=== PATIENT | female | born 1935 | race Caucasian/White ===

== ENCOUNTER 2018-03-02 09:48 | Outpatient (CLI) | payer MEDICARE ==
--- NOTE | 2018-03-02 12:06 | MRI ---
MRI BRAIN WITH AND WITHOUT CONTRAST: INDICATIONS: Brain mass. Follow-up intraventricular mass noted on prior MRI from 01/01/2017. COMPARISON: Prior MRI study from 01/01/2017. Prior CT scans from 12/31/2016, 03/17/2017, and 04/15/2017. TECHNIQUE: Multiplanar, multisequential images of the brain obtained. Post contrast images obtained with admini stration of 12 mL of MultiHance IV. FINDINGS: Mild cortical volume loss. Moderate chronic ischemic white matter changes again noted. These findin gs are stable. There is no evidence of restricted diffusion. The small nodule adjacent to the epidi dymal surface of the right lateral ventricle is again noted on all sequences. It measures approximat sarwat 7 mm and is stable in appearance from the prior study. There is no evidence of enhancement on po st contrast images. No other brain parenchymal enhancement. IMPRESSION: 1. The small, 7 mm, intraventricular mass, adjacent to the lateral wall of the right lateral ventric le, is stable in size and appearance. 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 2. Findings are otherwise stable, including mild cortical atrophy and moderate chronic ischemic whit e matter change. POS: [facility]
[2018-03-02] MEDS ORDERED: Gadobenate Dimeglumine 529 MG/1 ML (20ML VIAL) ONE (15:10)
== END 2018-03-02 09:49 | disposition home or self-care (01) ==
LOC: TBSIIMAG 09:48
PROVIDERS: ATTEND Neurological Surgery
DX: G93.9 Disorder of brain, unspecified (principal)
CPT/HCPCS: 70553; 82565; A9579

== ENCOUNTER 2018-05-03 15:45 | Outpatient (CLI) | payer MEDICARE ==
--- NOTE | 2018-05-03 16:32 | RAD ---
ONE VIEW THORACIC AND LUMBAR SPINE: History: Scoliosis study. FINDINGS: There is levorotatory scoliosis of the lumbar spine. There appear to be five lumbar type vertebral cathy dies. There appear to be twelve thoracic type vertebral bodies. Atherosclerosis of the aorta is noted. IMPRESSION: Levorotatory scoliosis of the lumbar spine. There appears to be at least 37 degrees of scoliosis. POS: [facility]
== END 2018-05-03 15:46 | disposition home or self-care (01) ==
LOC: SCSRAD 15:45
PROVIDERS: ATTEND Family Medicine
DX: M41.9 Scoliosis, unspecified (principal)
CPT/HCPCS: 72081

== ENCOUNTER 2018-07-06 10:25 | Outpatient (CLI) | payer MEDICARE ==
--- NOTE | 2018-07-06 11:57 | RAD ---
LEFT KNEE THREE VIEWS: HISTORY: Knee pain, M25.562. COMPARISON: None. FINDINGS: Mild joint effusion. There is narrowing of the lateral compartment with subchondral sclerosis and os teophyte formation. There are also osteophytes seen in the medial compartment and in the patellofemo ral compartment. No acute displaced fracture or malalignment. IMPRESSION: Moderate degenerative changes, worse in the lateral compartment. POS: [facility]
== END 2018-07-06 10:26 | disposition home or self-care (01) ==
LOC: SCSRAD 10:25
PROVIDERS: ATTEND Family Medicine
DX: M25.562 Pain in left knee (principal); M17.12 Unilateral primary osteoarthritis, left knee

== ENCOUNTER 2019-07-01 20:05 | Inpatient (IN) | payer MEDICARE ==
[~2019-07-01 20:05] MED LIST: ISOVUE-370 76%-LOCM 1 ML ONE
[2019-07-01 20:37] LABS: #Eosinphils 0.1 thou/uL (0.0-0.7); #Monocytes 0.7 thou/uL (0.11-0.59); #Neutrophils 11.3 thou/uL (1.40-6.50); %Basophils 0.1 % (0.0-1.0); %Eosinophils 0.8 % (0.0-10.0); %Lymphocytes 7.5 % (21.0-51.0); %Monocytes 5.1 % (0.0-10.0); %Neutrophils 86.6 % (42.0-75.0); Hemoglobin 13.6 g/dL (12.0-16.0); Mean Corpuscular Hemoglobin 28.8 pg (27.0-31.0); Mean Platelet Volume 7.9 fL (7.4-10.4); Platelet Count 228 thou/uL (130-400); RBC Distribution Width 13.8 % (11.5-14.5); Red Blood Cell (RBC) Count 4.71 mill/uL (4.20-5.40)
--- NOTE | 2019-07-01 20:57 | RAD ---
ONE VIEW CHEST: 07/01/19 HISTORY: Nausea. COMPARISON: 12/31/16 FINDINGS: There are sternotomy wires. Atherosclerosis of the aortic knob. Heart is enlarged. Pulmonary vessels are prominent. Bilateral pleural effusion with adjacent parenchymal change. No pneumothorax. IMPRESSION: Congestive heart failure. POS: [facility]
[2019-07-01 20:58] LABS: ALT (SGPT) 70 U/L (8-55); AST (SGOT) 54 U/L (5-34); Albumin 4.1 g/dL (3.4-4.8); Alkaline Phosphatase 107 U/L (40-150); Anion Gap 16 mmol/L (10-20); BUN (Urea Nitrogen) 20 mg/dL (9.8-20.1); Calc. Creatinine Clearance 0 mL/min (70-130); Calcium 9.5 mg/dL (7.8-10.44); Carbon Dioxide 23 mmol/L (23-31); Chloride 107 mmol/L (98-107); Estimated GFR-MDRD 66; Globulin 2.5 g/dL (2.4-3.5); Glucose 142 mg/dL (83-110); Lipase 19 U/L (8-78); Magnesium 2.3 mg/dL (1.6-2.6); Potassium 3.5 mmol/L (3.5-5.1); Protein, Total 6.6 g/dL (6.0-8.3); Sodium 142 mmol/L (136-145)
[2019-07-01] MEDS ORDERED: Diltiazem 125 MG/25 ML ONE (21:18)
[2019-07-01] MEDS ORDERED: Ondansetron PF 4 MG/2 ML Vial ONE (21:18)
--- NOTE | 2019-07-01 22:12 | CT ---
CT ABDOMEN AND PELVIS WITH IV CONTRAST 07/01/2019 CLINICAL INFORMATION: Abdominal pain which is generalized. Nausea and one episode of diarrhea. History of cholecystectomy a nd gastric bypass procedure. COMPARISON: None. Technique: Multiple contiguous axial CT images are obtained through the abdomen and pelvis with IV contrast. Cor onal reformatted images are provided. FINDINGS: Lower Chest: Incomplete visualization of moderately large bilateral pleural effusions with associated consolidation probably due to passive atelectasis; although, bibasilar pneumonia cannot be excluded. The heart is enlarged. Vascular calcifications are seen in the visualized coronary arteries . Median sternotomy wires are partially seen. Vessels: Vascular calcifications are seen in the abdominal aorta and involving the iliac arteries. Abdomen: Portal vein:Patent Gallbladder: Surgically absent. Liver: Slightly heterogeneous areas of ill-defined enhancement are seen in the periphery of the liver which may be related to cardiac decompensation and/or transient hepatic arterial differences. Spleen: within normal limits. Pancreas: within normal limits. Adrenals: within normal limits. Kidneys: within normal limits. Bowel: There are no postsurgical changes involving the stomach as provided clinical history suggests. However, there does appear to be mild thickening in the region of the but gastric antrum. Loops of small bowel are normal in caliber. Appendix: Not definitely visualized, there are no secondary signs seen to suggest appendicitis. Peritoneum: No ascites or free air; no fluid collection. Mesentery and Retroperitoneum: No enlarged mesenteric or retroperitoneal lymph nodes. Abdominal Wall: within normal limits. Pelvis: Reproductive Organs: Grossly within normal limits for patient's age. Pelvis within normal limits. Bladder: within normal limits. Bones: Multilevel degenerative changes are seen throughout the lumbar spine. There is left convex cur vature of the thoracolumbar spine. IMPRESSION: 1. Incomplete visualization of moderately large bilateral pleural effusions with associated bibasilar consolidation. Areas of consolidation may be related to passive atelectasis; although, bibasilar pneumonia cannot be excluded. 2. Cardiomegaly. 3. Slight heterogeneity of the liver which could be secondary to hepatic congestion due to right hear t decompensation. 4. Suggested mild wall thickening involving the gastric antrum and pylorus. Endoscopy would be better study of choice for further evaluation of this finding. 5. There is otherwise no acute finding seen in the abdomen or pelvis.
[2019-07-01] MEDS ORDERED: cefTRIAXone\\ROCEPHIN 1 GM VIAL ONE (22:38)
[2019-07-01] MEDS ORDERED: Azithromycin 500 MG in Sodium Chloride 0.9% 250 ML 250 ML IVPB SCH (23:00)
[2019-07-02] MEDS ORDERED: Ondansetron PF 4 MG/2 ML Vial IVP PRN ×2 (02:01→16:14)
[2019-07-02] MEDS ORDERED: Ondansetron ODT 4 MG TAB SL PRN (02:01)
[2019-07-02] MEDS ORDERED: Sodium Chloride 0.45% 1,000 ML IV SCH (02:01)
[2019-07-02] MEDS ORDERED: Diltiazem 125 MG in Sodium Chloride 0.9% 100 ML IVPB SCH ×3 (02:15→10:45)
[2019-07-02 02:54] LABS: Troponin I 0.015 ng/mL (< 0.028)
[2019-07-02 08:00] VITALS: BMI 26.4
[2019-07-02 08:18] LABS: Bilirubin Negative (Negative); Blood, Urine Negative (Negative); Clarity Clear (Clear); Glucose, Urine (Dipstick) Normal (Negative); Leukocyte Negative Leu/uL (Negative); Nitrite Negative (Negative); Protein, Urine (Dipstick) 30 mg/dL (Neg-Trace); Urobilinogen Normal mg/dL (Less than 2)
[2019-07-02 08:28] LABS: RBC/HPF 0-3 HPF (0-3); WBC/HPF 0-3 HPF (0-3)
[2019-07-02 08:29] LABS: Bacteria/HPF Rare-Few HPF (None Seen); Squamous Epithelial 0-3 HPF (0-3)
[2019-07-02] MEDS ORDERED: Furosemide 40 MG/4 ML VIAL SLOW IVP SCH (08:30)
[2019-07-02 08:31] LABS: Urine Culture Reflex No No
[2019-07-02] MEDS ORDERED: Prevnar 13-Val Conj/PF 0.5 ML SYRINGE IM ONE (09:00)
--- NOTE | 2019-07-02 14:57 | CON ---
DATE OF CONSULTATION: REASON FOR CONSULTATION: Atrial fibrillation. HISTORY OF PRESENT ILLNESS: Ms. Renteria is an 84-year-old woman, who is a patient of Dr. Luigi Morris. The patient was seen in 2017 for atrial fibrillation with rapid ventricular response. At that time, anticoagulation therapy was deferred due to frequent falls and a brain mass. She was last seen in the office in 2018 and again, deemed not to be a good candidate. She at that time was sent for EP for Watchman/Lariat device. She has missed her followup appointments, so I am unsure whether she underwent the procedure. The patient is confused and not able to give an appropriate history. She recently presented with weakness and fatigue. She also had abdominal pain and nausea. She was subsequently diagnosed with pneumonia. PAST MEDICAL HISTORY: 1. CAD, status post bypass surgery. 2. Hyperlipidemia. 3. Paroxysmal atrial fibrillation. 4. Breast cancer. 5. Cholecystectomy. 6. Tonsillectomy. 7. Mastectomy. ALLERGIES: NONE. HOME MEDICATIONS: Include potassium, vitamin D, Lipitor, aspirin, multivitamin, Protonix, ramipril, Aldactone, and amlodipine. REVIEW OF SYSTEMS: Difficult to obtain. PHYSICAL EXAMINATION: GENERAL: Patient is a pleasant female who is in no acute distress. The patient appears their stated age. VITAL SIGNS: Blood pressure 151/74, pulse 63, and temperature 99.3. NEUROLOGIC: The patient is alert and oriented x3 with no focal neurologic deficits. HEENT: Sclerae without icterus. Mouth has moist mucous membranes with normal pallor. NECK: No JVD. Carotid upstroke brisk. No bruits bilaterally. LUNGS: Clear to auscultation with unlabored respirations. BACK: No scoliosis or kyphosis. CARDIAC: Regular rate and rhythm with normal S1 and S2. No S3 or S4 noted. No significant rubs, murmurs, thrills, or gallops noted throughout the precordium. PMI is not displaced. There is no parasternal heave. ABDOMEN: Soft, nontender, nondistended. No peritoneal signs present. No hepatosplenomegaly. No abnormal striae. EXTREMITIES: 2+ femoral and 2+ dorsalis pedis pulses. No cyanosis, clubbing, or edema. SKIN: No gross abnormalities. Insert a new patient. PERTINENT LABORATORY DATA: Hemoglobin 13.6, hematocrit 42.4, and creatinine 0.82. Chest x-ray, findings suggest CHF. IMPRESSION: 1. Pneumonia. 2. Atrial fibrillation. 3. Likely heart failure of unknown etiology. 4. Dementia. RECOMMENDATION: Ms. Renteria appears to be rate controlled. Diltiazem has been discontinued. We will add low-dose beta-zaida therapy given atrial fibrillation and previous history of a bypass surgery. Continue antibiotic therapy as prescribed. Avoid anticoagulation therapy. Further recommendation per Dr. Luigi Morris. Job ID: [id number]
[2019-07-02] MEDS ORDERED: Meclizine HCl 25 MG TAB PO PRN (16:12)
[2019-07-02] MEDS ORDERED: Senokot S 8.6-50 MG TAB PO PRN (16:14)
[2019-07-02] MEDS ORDERED: Acetaminophen 325 MG TAB PO PRN (16:14)
[2019-07-02] MEDS ORDERED: Bisacodyl 5 MG TAB PO PRN (16:14)
[2019-07-02] MEDS: Carvedilol 25 MG TAB PO SCH (17:03)
[2019-07-02] MEDS: traZODone HCl 50 MG TAB PO SCH (20:56)
--- NOTE | 2019-07-02 22:23 | HP ---
CHIEF COMPLAINT: Nausea and abdominal pain. HISTORY OF PRESENT ILLNESS: The patient is an 84-year-old female with past medical history of atrial fibrillation, not on any anticoagulation. She also has a history of vertigo, has a history of hypertension, and she has also had a history of small subdural hemorrhage due to fall. This was back in 2017. The patient initially presented to the hospital with complaints of nausea, which lasted for about a whole day. The patient lives in an independent living with her . The patient's family stated that when her nausea did not improve at the end of the day, they did call the [facility] nurse, who advised the patient to come into the ER. When the family went to evaluate the patient, the patient's heart rate seemed to be elevated which concerned the family member, so the patient was brought into the hospital. PAST MEDICAL HISTORY: As of the following. The patient has a history of fall, has a history of dementia, has a history of atrial fibrillation and neuropathy. PAST SURGICAL HISTORY: She has had bilateral mastectomies and cardiac stents put in. She has also had a cholecystectomy. For her breast cancer, she has only had radiation, no chemotherapy per family. SOCIAL HISTORY: She lives in an independent living with her at [facility]. She denies any alcohol use or drug use per family. No smoking history. I have discussed code status with the family member, who is going to bring information on her resuscitation orders. ALLERGIES: SHE IS ALLERGIC TO CODEINE AND SULFATE. MEDICATIONS: She takes: 1. Carvedilol 12.5 b.i.d. 2. Meclizine 2.5 t.i.d. 3. Pantoprazole 40 mg twice a day. 4. Trazodone 50 mg at bedtime. PHYSICAL EXAMINATION: VITAL SIGNS: Temperature of 98.8, 93, respirations are 18, blood pressure 140/90. Her initial pulse was 140 when she came to the ER, but now currently 79. GENERAL: She is awake, alert, and oriented x3. Does not appear in distress. HEENT: Normocephalic, atraumatic. No lymphadenopathy lanny. Pupils are equal and reactive to light. CV: Irregularly irregular, rate controlled. LUNGS: Diminished breath sounds to bilateral lower lung bases. ABDOMEN: Soft. Bowel sounds are present x2. No pain upon palpation to her abdominal area. EXTREMITIES: No edema present. Pedal pulses are present x2. NEUROVASCULAR: No focal deficits noted. She is only oriented to self and place. She at times just does not know what really is going on. SKIN: No cuts, lesions or bruises noted. LABORATORY RESULTS: As of the following; WBCs of 13.0, hemoglobin of 13.6, hematocrit of 42.4, and platelets of 228. Sodium of 142, potassium of 3.5, BUN of 20, creatinine 0.82. LFTs are mildly elevated. Her troponins x3 were negative. Her proBNP which I checked was 649. Lipase was 19. Her urine did not show any acute infectious etiology. She did have a chest x-ray, which indicated bilateral pleural effusion. She also had a CT of abdomen and pelvis, which indicated large bilateral pleural effusion, cardiomegaly, and suggestive of mitral valve thickening involving the gastric antrum and pylorus. ASSESSMENT AND PLAN: The patient is a very pleasant 84-year-old female, who presents to the hospital with complaints of nausea. 1. Possible heart failure. The patient did complain with nausea and abdominal pain. Her BNP is elevated. She was found to be in atrial fibrillation with rapid ventricular response. I will continue the Cardizem and will get an echocardiogram. I will give her one dose of Lasix. Her BNP also was elevated. Cardiology has been consulted. 2. Atrial fibrillation with rapid ventricular response. She is currently not on any anticoagulation, most likely due to a fall back in 2017, which she had a hematoma. She does use a walker and she is a fall risk. She lives with her 92-year-old at an independent living. Currently, she is rate controlled. 3. Dementia. We will continue to monitor. 4. History of hypertension. We will continue to monitor. 5. Deep venous thrombosis prophylaxis. We will put the patient on some SCDs. Job ID: [id number]
[2019-07-03] MEDS ORDERED: diphenhydrAMINE 25 MG CAP PO SCH (01:30)
[2019-07-03 05:56] LABS: #Eosinphils 0.1 thou/uL (0.0-0.7); #Lymphocytes 1.1 thou/uL (1.20-3.40); #Monocytes 0.8 thou/uL (0.11-0.59); #Neutrophils 7.7 thou/uL (1.40-6.50); %Eosinophils 0.9 % (0.0-10.0); %Lymphocytes 11.6 % (21.0-51.0); %Monocytes 8.2 % (0.0-10.0); %Neutrophils 79.3 % (42.0-75.0); Mean Corpuscular HGB CONC 32.2 g/dL (32.0-36.0); Mean Corpuscular Hemoglobin 29.3 pg (27.0-31.0); Platelet Count 171 thou/uL (130-400); RBC Distribution Width 13.8 % (11.5-14.5); Red Blood Cell (RBC) Count 4.09 mill/uL (4.20-5.40); White Blood Cell (WBC) Count 9.7 thou/uL (4.8-10.8)
[2019-07-03 06:03] LABS: Anion Gap 12 mmol/L (10-20); BUN (Urea Nitrogen) 20 mg/dL (9.8-20.1); Calc. Creatinine Clearance 53 mL/min (70-130); Calcium 8.6 mg/dL (7.8-10.44); Carbon Dioxide 25 mmol/L (23-31); Chloride 106 mmol/L (98-107); Estimated GFR-MDRD 69; Glucose 107 mg/dL (83-110); Sodium 140 mmol/L (136-145)
[2019-07-03] MEDS ORDERED: Haloperidol Lactate 5 MG/ML VIAL IM PRN (08:07)
[2019-07-03] MEDS ORDERED: Furosemide 40 MG/4 ML VIAL SLOW IVP SCH (09:00)
[2019-07-03] MEDS ORDERED: Calcium Carbonate 500 MG TAB PO SCH (09:00)
[2019-07-03] MEDS: Calcium Carbonate 600 MG TAB PO SCH (09:10)
[2019-07-03] MEDS: Carvedilol 25 MG TAB PO SCH ×2 (09:10→15:59)
[2019-07-03] MEDS: Magnesium Oxide 250 MG TAB PO SCH (09:12)
[2019-07-03] MEDS: Enoxaparin Sodium 40 MG/0.4 ML SYRINGE SC SCH (09:12)
[2019-07-03] MEDS: Aspirin Chewable 81 MG TAB PO SCH (09:12)
[2019-07-03] MEDS: Cyanocobalamin (Vitamin B-12) 1,000 MCG TAB PO SCH (09:12)
[2019-07-03] MEDS ORDERED: Potassium Chloride 20 MEQ TAB PO SCH (09:45)
[2019-07-03] MEDS ORDERED: Potassium Chloride 20 MEQ/100 ML PREMIX BAG IVPB SCH (10:15)
[2019-07-03] MEDS ORDERED: Potassium Chloride 10 MEQ/100 ML PREMIX BAG IVPB SCH (10:30)
--- NOTE | 2019-07-03 12:26 | PDOC.CTH ---
Cardiology Progress Note - Subjective No new issues. She was confused overnight and pulled her out. She is very pleasant this morning. - Objective Vital Signs Temp Pulse Resp BP Pulse Ox 07/03/19 11:41 98.5 F 84 17 138/84 95 07/03/19 08:08 99.0 F 120 H 18 118/84 94 L 07/03/19 04:00 94 L 07/03/19 03:51 98.3 F 120 H 25 H 147/84 H 92 L 07/03/19 02:20 110 H 16 134/66 94 L Weight 145 lb 07/02/19 07/03/19 07/04/19 06:59 06:59 06:59 Intake Total 200 2852 Output Total 1545 Balance 200 1307 - Physical Examination General/Neuro: NAD Neck: no JVD present Lungs: CTA, unlabored respirations Heart: other: (irreg irreg) Abdomen: soft Extremities: + edema B (trace) - Telemetry Telemetry Rhythm: Afib HR 90-120 - Labs Result Diagrams: 07/03/19 05:18 07/03/19 05:18 Troponin/CKMB Troponin I 0.015 ng/mL (< 0.028) 07/02/19 02:22 - Assessment/Plan 1. Afib RVR 2. Acute systolic decompensated heart failure. EF 30-35% while in rapid afib. 3. Chronic afib 4. Hx of CAD s/p CABG 5. Brain mas 6. Frequent falls with Hx of a small subdural hematoma in the past due to a fall. 7. Hypokalemia PLAN: - Continue diuresis. - Continue rate control.. Will try to slow down more with amiodarone. - Not a good candidate for anticoagulation given falls and brain mass and Hx of subdural hematoma. - She wishes to be conservative with her care. Family cancelled her appointments with me in the last year as they thought there was nothing to do wit her heart and she continues to want to be conservative. She is not wanting a heart catheterization or an AICD. Will plan on repeating echo before discharge and see if her EF is better with better rate control. - Elan Presley
[2019-07-03] MEDS: Furosemide 40 MG/4 ML VIAL SLOW IVP SCH (14:02)
--- NOTE | 2019-07-03 14:13 | PDOC.HOSPP ---
- Subjective Encounter Date: 07/03/19 Encounter Time: 10:30 Subjective: pt up in bed very combative. - Objective Vital Signs & Weight: Vital Signs (12 hours) Temp Pulse Resp BP Pulse Ox 07/03/19 11:41 98.5 F 84 17 138/84 95 07/03/19 08:08 99.0 F 120 H 18 118/84 94 L 07/03/19 04:00 94 L 07/03/19 03:51 98.3 F 120 H 25 H 147/84 H 92 L 07/03/19 02:20 110 H 16 134/66 94 L Weight Weight 145 lb I&O: 07/02/19 07/03/19 07/04/19 06:59 06:59 06:59 Intake Total 200 2852 Output Total 1545 Balance 200 1307 Result Diagrams: 07/03/19 05:18 07/03/19 05:18 ROS - Review of Systems Respiratory: denies: cough, dry, shortness of breath, hemoptysis, SOB with excertion, pleuritic pain, sputum, wheezing, other Cardiovascular: denies: chest pain, palpitations, orthopnea, paroxysmal noc. dyspnea, edema, light headedness, other Gastrointestinal: denies: nausea, vomitting, abdominal pain, diarrhea, constipation, melena, hematochezia, other - Medication Medications: Active Medications Generic Name Dose Route Start Last Admin Trade Name Freq PRN Reason Stop Dose Admin Aspirin 81 mg 07/03/19 09:00 07/03/19 09:12 Aspirin Chewable PO 81 mg DAILY DAMI Administration Calcium Carbonate 600 mg 07/03/19 08:00 07/03/19 09:10 Caltrate PO 600 mg QAM-[facility] Administration Carvedilol 12.5 mg 07/02/19 17:00 07/03/19 09:10 Coreg PO 12.5 mg BID-[facility] Administration Cholecalciferol 2,000 units 07/03/19 09:00 07/03/19 09:12 Vitamin D3 PO 2,000 units DAILY DAMI Administration Cyanocobalamin 1,000 mcg 07/03/19 09:00 07/03/19 09:12 Vitamin B-12 PO 1,000 mcg DAILY DAMI Administration Enoxaparin Sodium 40 mg 07/03/19 09:00 07/03/19 09:12 Lovenox SC 40 mg 0900 DAMI Administration Furosemide 40 mg 07/03/19 14:00 07/03/19 14:02 Lasix SLOW IVP 40 mg 0600,1400 DAMI Administration Haloperidol Lactate 5 mg 07/03/19 08:07 07/03/19 09:13 Haldol IM 5 mg Q4H PRN Administration Agitation Levofloxacin 500 mg/ Device 100 mls @ 100 mls/hr 07/02/19 17:00 07/02/19 17: 04 IVPB 100 mls Q24H DAMI Administration Magnesium Oxide 250 mg 07/03/19 09:00 07/03/19 09:12 Magnesium Oxide PO 250 mg DAILY [facility] Administration Ondansetron HCl 4 mg 07/02/19 16:14 07/03/19 14:05 Zofran IVP 4 mg Q6H PRN Administration Nausea/Vomiting Pantoprazole Sodium 40 mg 07/03/19 09:00 07/03/19 09:12 Protonix PO 40 mg DAILY [facility]I Administration Sodium Chloride 10 ml 07/02/19 09:00 07/03/19 09:12 Flush - Normal Saline IVF 10 ml Q12HR [facility]I Administration Trazodone HCl 50 mg 07/02/19 21:00 07/02/19 20:56 Desyrel PO 50 mg HS DAMI Administration - Exam Neck: negative: supple, symmetric, no JVD, no thyromegaly, no lymphadenopathy, no carotid bruit, JVD Heart: negative: RRR, no murmur, no gallops, no rubs, normal peripheral pulses, irregular, diminshed peripheral pulses, murmur present, II/IV, III/IV Respiratory: negative: CTAB, no wheezes, no rales, no ronchi, normal chest expansion, no tachypnea, normal percussion, rales, rhonchi, tachypneic, wheezes Hosp A/P (1) CHF (congestive heart failure) Code(s): I50.9 - HEART FAILURE, UNSPECIFIED Status: Acute (2) Nausea Code(s): R11.0 - NAUSEA Status: Acute (3) Afib Code(s): I48.91 - UNSPECIFIED ATRIAL FIBRILLATION Status: Acute (4) Bilateral pleural effusion Code(s): J90 - PLEURAL EFFUSION, NOT ELSEWHERE CLASSIFIED Status: Acute (5) Dementia Code(s): F03.90 - UNSPECIFIED DEMENTIA WITHOUT BEHAVIORAL DISTURBANCE Status: Acute - Plan will continue iv lasix. pt got confused was given haldol. she does not have a pna. will discontinue abx. echo indicated ef of 35% pt has systolic hf. pt has had a brain bleed after a fall. she is on asa.
[2019-07-03] MEDS: traZODone HCl 50 MG TAB PO SCH (20:09)
[2019-07-03] MEDS: Amiodarone 450 MG in Dextrose 5% in Water 250 ML IVPB SCH (23:07)
[2019-07-04] MEDS: Furosemide 40 MG/4 ML VIAL SLOW IVP SCH ×2 (05:39→12:52)
[2019-07-04] MEDS: Calcium Carbonate 600 MG TAB PO SCH (08:23)
[2019-07-04] MEDS: Carvedilol 25 MG TAB PO SCH ×2 (08:23→17:33)
[2019-07-04] MEDS: Aspirin Chewable 81 MG TAB PO SCH (08:25)
[2019-07-04] MEDS: Cyanocobalamin (Vitamin B-12) 1,000 MCG TAB PO SCH (08:25)
[2019-07-04] MEDS: Magnesium Oxide 250 MG TAB PO SCH (08:26)
[2019-07-04] MEDS: Enoxaparin Sodium 40 MG/0.4 ML SYRINGE SC SCH (08:26)
[2019-07-04 10:30] LABS: Anion Gap 13 mmol/L (10-20); BUN (Urea Nitrogen) 22 mg/dL (9.8-20.1); Calc. Creatinine Clearance 42 mL/min (70-130); Calcium 9.1 mg/dL (7.8-10.44); Carbon Dioxide 34 mmol/L (23-31); Chloride 99 mmol/L (98-107); Estimated GFR-MDRD 54; Glucose 175 mg/dL (83-110); Sodium 143 mmol/L (136-145)
[2019-07-04 10:42] LABS: Potassium 2.8 mmol/L (3.5-5.1)
[2019-07-04] MEDS ORDERED: Potassium Chloride 20 MEQ TAB PO SCH (12:30)
--- NOTE | 2019-07-04 12:35 | PDOC.CPN ---
- Subjective Date: 07/04/19 Time: 12:34 Interval history: She is doing better. No chest pain. SOB is better. Not needing oxygen now. - Review of Systems General: denies: fever/chills, weight/appetite/sleep changes, night sweats, fatigue Respiratory: reports: cough. denies: congestion, shortness of breath, exercise intolerance Cardiovascular: denies: chest pain, palpitation, edema, paroxysmal nocturnal dyspnea, orthopnea Gastrointestinal: denies: nausea, vomiting, diarrhea, constipation, abd pain, GI bleeding Musculoskeletal: denies: pain, tenderness, stiffness, swelling, arthritis/ arthralgias Neurological: denies: numbness, syncope, seizure, weakness - Objective Allergies/Adverse Reactions: Allergies Allergy/AdvReac Type Severity Reaction Status Date / Time codeine Allergy Verified 07/02/19 02:18 Visit Medications: Current Medications Acetaminophen (Tylenol) 650 mg PO Q4H PRN PRN Reason: Headache/Fever/Mild Pain (1-3) Aspirin (Aspirin Chewable) 81 mg PO DAILY [facility] Last Admin: 07/04/19 08:25 Dose: 81 mg Bisacodyl (Dulcolax) 10 mg PO DAILYPRN PRN PRN Reason: Constipation Calcium Carbonate (Caltrate) 600 mg PO QAM-[facility] Last Admin: 07/04/19 08:23 Dose: 600 mg Carvedilol (Coreg) 25 mg PO BID-[facility] Cholecalciferol (Vitamin D3) 2,000 units PO DAILY [facility] Last Admin: 07/04/19 08:25 Dose: 2,000 units Cyanocobalamin (Vitamin B-12) 1,000 mcg PO DAILY [facility] Last Admin: 07/04/19 08:25 Dose: 1,000 mcg Enoxaparin Sodium (Lovenox) 40 mg SC 0900 [facility] Last Admin: 07/04/19 08:26 Dose: 40 mg Furosemide (Lasix) 40 mg SLOW IVP 0600,1400 [facility] Last Admin: 07/04/19 05:39 Dose: 40 mg Haloperidol Lactate (Haldol) 5 mg IM Q4H PRN PRN Reason: Agitation Last Admin: 07/03/19 09:13 Dose: 5 mg Amiodarone HCl 450 mg/ (Dextrose/Water) 259 mls @ 0 mls/hr IVPB INF [facility]; Protocol Last Admin: 07/03/19 23:07 Dose: 259 mls Magnesium Oxide (Magnesium Oxide) 250 mg PO DAILY [facility] Last Admin: 07/04/19 08:26 Dose: 250 mg Meclizine HCl (Antivert) 25 mg PO TIDPRN PRN PRN Reason: Dizziness Ondansetron HCl (Zofran) 4 mg IVP Q6H PRN PRN Reason: Nausea/Vomiting Last Admin: 07/03/19 14:05 Dose: 4 mg Pantoprazole Sodium (Protonix) 40 mg PO DAILY [facility] Last Admin: 07/04/19 08:26 Dose: 40 mg Potassium Chloride (K-Dur) 40 meq PO NOW [facility] Stop: 07/04/19 14:30 Senna/Docusate Sodium (Senokot S) 2 tab PO BIDPRN PRN PRN Reason: Constipation Sodium Chloride (Flush - Normal Saline) 10 ml IVF Q12HR [facility] Last Admin: 07/04/19 08:26 Dose: 10 ml Sodium Chloride (Flush - Normal Saline) 10 ml IVF PRN PRN PRN Reason: Saline Flush Trazodone HCl (Desyrel) 50 mg PO HS [facility] Last Admin: 07/03/19 20:09 Dose: 50 mg Vital Signs & Weight: Vital Signs Temp Pulse Resp BP Pulse Ox 07/04/19 11:10 97.5 F L 89 17 147/80 H 94 L 07/04/19 07:16 97.4 F L 138 H 17 144/98 H 95 07/04/19 04:00 97.3 F L 99 18 113/66 100 Weight 143 lb 6 oz - Quality Measures Condition: Atrial Fibrillation/Flutter (hx or current), Heart Failure CV meds: Beta Km: Yes - Physical Exam HEENT: mucus membranes moist, normocephaly Neck: supple neck, midline trachea, no JVD/HJR, no masses, no bruit, no lymphadenopathy, no thromegaly Cardiac: no murmur, irregularly regular Lungs: clear to auscultation, normal breath sounds, normal exam, no wheeze, rales, rhonchi Abdomen: unremarkable, active bowel sounds, soft, non-tender, no masses, no pulsations/bruits, no hepatosplenomegaly Skin: clear Musculoskeletal: normal range of motion, no pain - Labs Result Diagrams: 07/03/19 05:18 07/04/19 09:58 Troponin/CKMB Troponin I 0.015 ng/mL (< 0.028) 07/02/19 02:22 - Telemetry Supraventricular conduction: atrial fibrillation (HR 80-110's) - Problem (1) CHF (congestive heart failure) Code(s): I50.9 - HEART FAILURE, UNSPECIFIED Qualifiers: Heart failure type: systolic Heart failure chronicity: acute Qualified Code(s): I50.21 - Acute systolic (congestive) heart failure Assessment and Plan: Will start low dose ACEI. Will increase coreg. (2) Afib Code(s): I48.91 - UNSPECIFIED ATRIAL FIBRILLATION Qualifiers: Atrial fibrillation type: chronic Qualified Code(s): I48.2 - Chronic atrial fibrillation - Assessment/Plan Assessment/Plan: 1. Afib RVR 2. Acute systolic decompensated heart failure. EF 30-35% while in rapid afib. 3. Chronic afib 4. Hx of CAD s/p CABG 5. Brain mas 6. Frequent falls with Hx of a small subdural hematoma in the past due to a fall. 7. Hypokalemia PLAN: - Continue diuresis. - Improve rate control with coreg. - Replace K. - Poor candidate for full anticoagulation due to falls. - Continue amiodarone drip for rate control.
--- NOTE | 2019-07-04 16:48 | PDOC.HOSPP ---
- Subjective Encounter Date: 07/04/19 Encounter Time: 16:46 Subjective: Ms. Renteria was seen today in follow-up of Malignant Pleural Effusion. She notes some abdominal discomfort, otherwise ok - Objective Vital Signs & Weight: Vital Signs (12 hours) Temp Pulse Pulse Pulse Resp BP BP 07/04/19 15:25 97.5 F L 72 17 07/04/19 11:25 89 107 H 147/80 H 151/95 H 07/04/19 11:10 97.5 F L 89 17 07/04/19 07:16 97.4 F L 138 H 17 BP Pulse Ox 07/04/19 15:25 157/92 H 95 07/04/19 11:25 07/04/19 11:10 147/80 H 94 L 07/04/19 07:16 144/98 H 95 Weight Weight 143 lb 6 oz I&O: 07/03/19 07/04/19 07/05/19 06:59 06:59 06:59 Intake Total 2852 1827 Output Total 1545 925 Balance 1307 902 Result Diagrams: 07/03/19 05:18 07/04/19 09:58 Hospitalist ROS - Medication Medications: Active Medications Generic Name Dose Route Start Last Admin Trade Name Freq PRN Reason Stop Dose Admin Aspirin 81 mg 07/03/19 09:00 07/04/19 08:25 Aspirin Chewable PO 81 mg DAILY DAMI Administration Calcium Carbonate 600 mg 07/03/19 08:00 07/04/19 08:23 Caltrate PO 600 mg QAM-WM DAMI Administration Cholecalciferol 2,000 units 07/03/19 09:00 07/04/19 08:25 Vitamin D3 PO 2,000 units DAILY DAMI Administration Cyanocobalamin 1,000 mcg 07/03/19 09:00 07/04/19 08:25 Vitamin B-12 PO 1,000 mcg DAILY DAMI Administration Enoxaparin Sodium 40 mg 07/03/19 09:00 07/04/19 08:26 Lovenox SC 40 mg 0900 DAMI Administration Furosemide 40 mg 07/03/19 14:00 07/04/19 12:52 Lasix SLOW IVP 40 mg 0600,1400 DAMI Administration Haloperidol Lactate 5 mg 07/03/19 08:07 07/03/19 09:13 Haldol IM 5 mg Q4H PRN Administration Agitation Amiodarone HCl 450 mg/ 259 mls @ 0 mls/hr 07/03/19 12:30 07/03/19 23:07 Dextrose/Water IVPB 259 mls INF DAMI Administration Protocol Per Protocol Magnesium Oxide 250 mg 07/03/19 09:00 07/04/19 08:26 Magnesium Oxide PO 250 mg DAILY DAMI Administration Ondansetron HCl 4 mg 07/02/19 16:14 07/03/19 14:05 Zofran IVP 4 mg Q6H PRN Administration Nausea/Vomiting Pantoprazole Sodium 40 mg 07/03/19 09:00 07/04/19 08:26 Protonix PO 40 mg DAILY DAMI Administration Sodium Chloride 10 ml 07/02/19 09:00 07/04/19 08:26 Flush - Normal Saline IVF 10 ml Q12HR DAMI Administration Trazodone HCl 50 mg 07/02/19 21:00 07/03/19 20:09 Desyrel PO 50 mg HS DAMI Administration - Exam Eye: PERRL Heart: RRR, no murmur, no gallops, no rubs Respiratory: CTAB, no wheezes, no rales, no ronchi, normal chest expansion Gastrointestinal: soft, non-tender, non-distended, normal bowel sounds, no palpable masses, no hepatomegaly Extremities: no cyanosis, no clubbing, no edema Skin: normal turgor Hosp A/P (1) Malignant pleural effusion Code(s): J91.0 - MALIGNANT PLEURAL EFFUSION Status: Acute (2) Breast cancer Status: Chronic (3) CAD (coronary artery disease) Code(s): I25.10 - ATHSCL HEART DISEASE OF [place] CORONARY ARTERY W/O ANG PCTRS Status: Chronic (4) HTN (hypertension) Code(s): I10 - ESSENTIAL (PRIMARY) HYPERTENSION Status: Chronic (5) Chronic systolic heart failure Code(s): I50.22 - CHRONIC SYSTOLIC (CONGESTIVE) HEART FAILURE Status: Acute (6) Hypokalemia Code(s): E87.6 - HYPOKALEMIA Status: Chronic - Plan * Malignant Pleural Effusion- she is s/p PleurX catheter placement * Atrial fibrillation- continue Amiodarone drip - hopefully she will convert to sinus * HTN- blood pressure is a bit elevated- will observe the trend * Chronic systolic heart failure- compensated * CAD- stable
[2019-07-04] MEDS: traZODone HCl 50 MG TAB PO SCH (20:39)
[2019-07-05] MEDS: Amiodarone 450 MG in Dextrose 5% in Water 250 ML IVPB SCH (05:14)
[2019-07-05] MEDS: Furosemide 40 MG/4 ML VIAL SLOW IVP SCH ×2 (05:34→14:22)
[2019-07-05] MEDS: Aspirin Chewable 81 MG TAB PO SCH (09:04)
[2019-07-05] MEDS: Magnesium Oxide 250 MG TAB PO SCH (09:04)
[2019-07-05] MEDS: Enoxaparin Sodium 40 MG/0.4 ML SYRINGE SC SCH (09:04)
[2019-07-05] MEDS: Calcium Carbonate 600 MG TAB PO SCH (09:04)
[2019-07-05] MEDS: Carvedilol 25 MG TAB PO SCH ×2 (09:05→16:08)
[2019-07-05] MEDS: Cyanocobalamin (Vitamin B-12) 1,000 MCG TAB PO SCH (09:05)
[2019-07-05 11:29] LABS: Anion Gap 17 mmol/L (10-20); BUN (Urea Nitrogen) 22 mg/dL (9.8-20.1); Calc. Creatinine Clearance 49 mL/min (70-130); Carbon Dioxide 27 mmol/L (23-31); Chloride 98 mmol/L (98-107); Estimated GFR-MDRD 64; Glucose 115 mg/dL (83-110); Potassium 3.3 mmol/L (3.5-5.1); Sodium 139 mmol/L (136-145)
--- NOTE | 2019-07-05 15:56 | PDOC.CPN ---
- Subjective Date: 07/05/19 Time: 15:55 - Review of Systems General: denies: fever/chills, weight/appetite/sleep changes, night sweats, fatigue Respiratory: denies: cough, congestion, shortness of breath, exercise intolerance Cardiovascular: denies: chest pain, palpitation, edema, paroxysmal nocturnal dyspnea, orthopnea Gastrointestinal: denies: nausea, vomiting, diarrhea, constipation, abd pain, GI bleeding Musculoskeletal: denies: pain, tenderness, stiffness, swelling, arthritis/ arthralgias Neurological: denies: numbness, syncope, seizure, weakness - Objective Allergies/Adverse Reactions: Allergies Allergy/AdvReac Type Severity Reaction Status Date / Time codeine Allergy Verified 07/02/19 02:18 Visit Medications: Current Medications Acetaminophen (Tylenol) 650 mg PO Q4H PRN PRN Reason: Headache/Fever/Mild Pain (1-3) Amiodarone HCl (Cordarone) 400 mg PO BID [facility] Amiodarone HCl (Cordarone) 400 mg PO NOW [facility] Stop: 07/05/19 18:00 Aspirin (Aspirin Chewable) 81 mg PO DAILY [facility] Last Admin: 07/05/19 09:04 Dose: 81 mg Bisacodyl (Dulcolax) 10 mg PO DAILYPRN PRN PRN Reason: Constipation Calcium Carbonate (Caltrate) 600 mg PO QAM-[facility] Last Admin: 07/05/19 09:04 Dose: 600 mg Carvedilol (Coreg) 25 mg PO BID-[facility] Last Admin: 07/05/19 09:05 Dose: 25 mg Cholecalciferol (Vitamin D3) 2,000 units PO DAILY [facility] Last Admin: 07/05/19 09:04 Dose: 2,000 units Cyanocobalamin (Vitamin B-12) 1,000 mcg PO DAILY [facility] Last Admin: 07/05/19 09:05 Dose: 1,000 mcg Enoxaparin Sodium (Lovenox) 40 mg SC 0900 [facility] Last Admin: 07/05/19 09:04 Dose: 40 mg Furosemide (Lasix) 40 mg SLOW IVP 0600,1400 [facility] Last Admin: 07/05/19 14:22 Dose: 40 mg Haloperidol Lactate (Haldol) 5 mg IM Q4H PRN PRN Reason: Agitation Last Admin: 07/03/19 09:13 Dose: 5 mg Magnesium Oxide (Magnesium Oxide) 250 mg PO DAILY [facility] Last Admin: 07/05/19 09:04 Dose: 250 mg Meclizine HCl (Antivert) 25 mg PO TIDPRN PRN PRN Reason: Dizziness Ondansetron HCl (Zofran) 4 mg IVP Q6H PRN PRN Reason: Nausea/Vomiting Last Admin: 07/03/19 14:05 Dose: 4 mg Pantoprazole Sodium (Protonix) 40 mg PO DAILY [facility] Last Admin: 07/05/19 09:04 Dose: 40 mg Senna/Docusate Sodium (Senokot S) 2 tab PO BIDPRN PRN PRN Reason: Constipation Sodium Chloride (Flush - Normal Saline) 10 ml IVF Q12HR [facility] Last Admin: 07/05/19 09:05 Dose: Not Given Sodium Chloride (Flush - Normal Saline) 10 ml IVF PRN PRN PRN Reason: Saline Flush Last Admin: 07/05/19 05:34 Dose: 10 ml Trazodone HCl (Desyrel) 50 mg PO HS [facility] Last Admin: 07/04/19 20:39 Dose: 50 mg Vital Signs & Weight: Vital Signs Temp Pulse Pulse Pulse Resp BP BP 07/05/19 13:09 87 82 137/69 140/64 07/05/19 11:25 97.7 F 88 18 07/05/19 08:00 97.2 F L 95 18 07/05/19 04:00 98.3 F 120 H 18 BP Pulse Ox 07/05/19 13:09 07/05/19 11:25 156/67 H 07/05/19 08:00 144/78 H 94 L 07/05/19 04:00 152/91 H 94 L Weight 143 lb 6 oz - Quality Measures Condition: Atrial Fibrillation/Flutter (hx or current), Heart Failure CV meds: Beta Km: Yes, ASA: Yes - Physical Exam General: no apparent distress HEENT: mucus membranes moist Neck: supple neck, midline trachea Cardiac: irregularly regular Lungs: clear to auscultation - Labs Result Diagrams: 07/03/19 05:18 07/05/19 10:53 Troponin/CKMB Troponin I 0.015 ng/mL (< 0.028) 07/02/19 02:22 - Problem (1) CHF (congestive heart failure) Code(s): I50.9 - HEART FAILURE, UNSPECIFIED Qualifiers: Heart failure type: systolic Heart failure chronicity: acute Qualified Code(s): I50.21 - Acute systolic (congestive) heart failure (2) Afib Code(s): I48.91 - UNSPECIFIED ATRIAL FIBRILLATION Qualifiers: Atrial fibrillation type: chronic Qualified Code(s): I48.2 - Chronic atrial fibrillation - Assessment/Plan Assessment/Plan: 1. Chronic afib, rate controlled now. 2. Acute systolic decompensated heart failure. EF 30-35% while in rapid afib. 3. Hypokalemia. 4. Hx of CAD s/p CABG 5. Brain mas 6. Frequent falls with Hx of a small subdural hematoma in the past due to a fall. PLAN: - Switch to PO diuresis. - Will switch amiodarone to PO. - Replace K. - Poor candidate for full anticoagulation due to falls. - Home tomorrow if she remains rate controlled. - Will hold off on repeating echo as family not interested in lifevest or AICD. - Will add losartan at 25 mg dialy.
[2019-07-05] MEDS ORDERED: Amiodarone 200 MG TAB PO SCH ×2 (16:00→21:00)
--- NOTE | 2019-07-05 17:10 | PDOC.HOSPP ---
- Subjective Encounter Date: 07/05/19 Encounter Time: 17:08 Subjective: Ms. Renteria was seen today in follow-up of Malignant pleural effusion. She does not have any complaints. She does not want to be disturbed, and has asked me to leave. - Objective Vital Signs & Weight: Vital Signs (12 hours) Temp Pulse Pulse Pulse Resp BP BP 07/05/19 16:10 80 18 07/05/19 13:09 87 82 137/69 140/64 07/05/19 11:25 97.7 F 88 18 07/05/19 08:00 97.2 F L 95 18 BP Pulse Ox 07/05/19 16:10 133/76 93 L 07/05/19 13:09 07/05/19 11:25 156/67 H 07/05/19 08:00 144/78 H 94 L Weight Weight 143 lb 6 oz I&O: 07/04/19 07/05/19 07/06/19 06:59 06:59 06:59 Intake Total 1827 672 240 Output Total 925 1050 Balance 902 -378 240 Result Diagrams: 07/03/19 05:18 07/05/19 10:53 Hospitalist ROS - Medication Medications: Active Medications Generic Name Dose Route Start Last Admin Trade Name Freq PRN Reason Stop Dose Admin Amiodarone HCl 400 mg 07/05/19 16:00 07/05/19 16:08 Cordarone PO 07/05/19 18:00 400 mg NOW DAMI Administration Aspirin 81 mg 07/03/19 09:00 07/05/19 09:04 Aspirin Chewable PO 81 mg DAILY DAMI Administration Calcium Carbonate 600 mg 07/03/19 08:00 07/05/19 09:04 Caltrate PO 600 mg QAM-WM DAMI Administration Carvedilol 25 mg 07/04/19 17:00 07/05/19 16:08 Coreg PO 25 mg BID-WM DAMI Administration Cholecalciferol 2,000 units 07/03/19 09:00 07/05/19 09:04 Vitamin D3 PO 2,000 units DAILY DAMI Administration Cyanocobalamin 1,000 mcg 07/03/19 09:00 07/05/19 09:05 Vitamin B-12 PO 1,000 mcg DAILY DAMI Administration Enoxaparin Sodium 40 mg 07/03/19 09:00 07/05/19 09:04 Lovenox SC 40 mg 0900 DAMI Administration Furosemide 40 mg 07/03/19 14:00 07/05/19 14:22 Lasix SLOW IVP 40 mg 0600,1400 DAMI Administration Haloperidol Lactate 5 mg 07/03/19 08:07 07/03/19 09:13 Haldol IM 5 mg Q4H PRN Administration Agitation Magnesium Oxide 250 mg 07/03/19 09:00 07/05/19 09:04 Magnesium Oxide PO 250 mg DAILY DAMI Administration Ondansetron HCl 4 mg 07/02/19 16:14 07/03/19 14:05 Zofran IVP 4 mg Q6H PRN Administration Nausea/Vomiting Pantoprazole Sodium 40 mg 07/03/19 09:00 07/05/19 09:04 Protonix PO 40 mg DAILY DAMI Administration Sodium Chloride 10 ml 07/02/19 09:00 07/05/19 09:05 Flush - Normal Saline IVF Not Given Q12HR DAMI Sodium Chloride 10 ml 07/02/19 02:01 07/05/19 05:34 Flush - Normal Saline IVF 10 ml PRN PRN Administration Saline Flush Trazodone HCl 50 mg 07/02/19 21:00 07/04/19 20:39 Desyrel PO 50 mg HS DAMI Administration - Exam Respiratory: CTAB, no wheezes, no rales, no ronchi Gastrointestinal: soft, non-tender, non-distended, normal bowel sounds Hosp A/P (1) Malignant pleural effusion Code(s): J91.0 - MALIGNANT PLEURAL EFFUSION Status: Acute (2) Breast cancer Status: Chronic (3) CAD (coronary artery disease) Code(s): I25.10 - ATHSCL HEART DISEASE OF [place] CORONARY ARTERY W/O ANG PCTRS Status: Chronic (4) HTN (hypertension) Code(s): I10 - ESSENTIAL (PRIMARY) HYPERTENSION Status: Chronic (5) Chronic systolic heart failure Code(s): I50.22 - CHRONIC SYSTOLIC (CONGESTIVE) HEART FAILURE Status: Acute (6) Hypokalemia Code(s): E87.6 - HYPOKALEMIA Status: Chronic - Plan * Malignant Pleural Effusion- she is s/p PleurX catheter placement * Atrial fibrillation- continue Amiodarone * HTN- blood pressure is better today * Chronic systolic heart failure- compensated * CAD- stable * Possible home tomorrow
[2019-07-05] MEDS: traZODone HCl 50 MG TAB PO SCH (20:55)
[2019-07-06] MEDS: Furosemide 40 MG/4 ML VIAL SLOW IVP SCH ×2 (05:36→15:00)
[2019-07-06] MEDS: Amiodarone 200 MG TAB PO SCH ×2 (08:50→20:51)
[2019-07-06] MEDS: Cyanocobalamin (Vitamin B-12) 1,000 MCG TAB PO SCH (08:50)
[2019-07-06] MEDS: Magnesium Oxide 250 MG TAB PO SCH (08:50)
[2019-07-06] MEDS: Carvedilol 25 MG TAB PO SCH ×2 (08:51→18:24)
[2019-07-06] MEDS: Enoxaparin Sodium 40 MG/0.4 ML SYRINGE SC SCH (08:51)
[2019-07-06] MEDS: Calcium Carbonate 600 MG TAB PO SCH (08:51)
[2019-07-06] MEDS: Losartan 25 MG TAB PO SCH (08:51)
[2019-07-06] MEDS: Aspirin Chewable 81 MG TAB PO SCH (08:51)
[2019-07-06] MEDS ORDERED: Digoxin 0.125 MG TAB PO SCH (09:15)
[2019-07-06 10:56] LABS: Anion Gap 14 mmol/L (10-20); BUN (Urea Nitrogen) 21 mg/dL (9.8-20.1); Calc. Creatinine Clearance 42 mL/min (70-130); Calcium 8.9 mg/dL (7.8-10.44); Carbon Dioxide 34 mmol/L (23-31); Chloride 96 mmol/L (98-107); Estimated GFR-MDRD 57; Glucose 127 mg/dL (83-110); Sodium 141 mmol/L (136-145)
[2019-07-06 10:58] LABS: Potassium 2.8 mmol/L (3.5-5.1)
[2019-07-06] MEDS ORDERED: Potassium Chloride 20 MEQ TAB PO SCH ×2 (11:45→18:00)
--- NOTE | 2019-07-06 11:51 | PDOC.HOSPP ---
- Subjective Encounter Date: 07/06/19 Encounter Time: 11:50 Subjective: Ms. Renteria was seen today in follow-up of AFIB and pleural effusion. She does not have any new complaints. She would like to go home. - Objective Vital Signs & Weight: Vital Signs (12 hours) Temp Pulse Resp BP Pulse Ox 07/06/19 09:49 85 07/06/19 08:00 97.9 F 105 H 20 137/73 93 L 07/06/19 03:14 97.8 F 88 14 148/90 H 93 L Weight Weight 133 lb 9.6 oz I&O: 07/05/19 07/06/19 07/07/19 06:59 06:59 06:59 Intake Total 672 1979 480 Output Total 1050 1999 Balance -378 -20 480 Result Diagrams: 07/03/19 05:18 07/06/19 10:25 Hospitalist ROS - Medication Medications: Active Medications Generic Name Dose Route Start Last Admin Trade Name Freq PRN Reason Stop Dose Admin Amiodarone HCl 400 mg 07/06/19 09:00 07/06/19 08:50 Cordarone PO 400 mg BID DAMI Administration Aspirin 81 mg 07/03/19 09:00 07/06/19 08:51 Aspirin Chewable PO 81 mg DAILY DAMI Administration Calcium Carbonate 600 mg 07/03/19 08:00 07/06/19 08:51 Caltrate PO 600 mg QAM-WM DAMI Administration Carvedilol 25 mg 07/04/19 17:00 07/06/19 08:51 Coreg PO 25 mg BID-WM DAMI Administration Cholecalciferol 2,000 units 07/03/19 09:00 07/06/19 08:49 Vitamin D3 PO 2,000 units DAILY DAMI Administration Cyanocobalamin 1,000 mcg 07/03/19 09:00 07/06/19 08:50 Vitamin B-12 PO 1,000 mcg DAILY DAMI Administration Enoxaparin Sodium 40 mg 07/03/19 09:00 07/06/19 08:51 Lovenox SC 40 mg 0900 DAMI Administration Furosemide 40 mg 07/03/19 14:00 07/06/19 05:36 Lasix SLOW IVP 40 mg 0600,1400 DAMI Administration Haloperidol Lactate 5 mg 07/03/19 08:07 07/03/19 09:13 Haldol IM 5 mg Q4H PRN Administration Agitation Losartan Potassium 25 mg 07/06/19 09:00 07/06/19 08:51 Cozaar PO 25 mg DAILY DAMI Administration Magnesium Oxide 250 mg 07/03/19 09:00 07/06/19 08:50 Magnesium Oxide PO 250 mg DAILY DAMI Administration Ondansetron HCl 4 mg 07/02/19 16:14 07/03/19 14:05 Zofran IVP 4 mg Q6H PRN Administration Nausea/Vomiting Pantoprazole Sodium 40 mg 07/03/19 09:00 07/06/19 08:51 Protonix PO 40 mg DAILY DAMI Administration Sodium Chloride 10 ml 07/02/19 09:00 07/06/19 08:52 Flush - Normal Saline IVF 10 ml Q12HR DAMI Administration Sodium Chloride 10 ml 07/02/19 02:01 07/06/19 05:36 Flush - Normal Saline IVF 10 ml PRN PRN Administration Saline Flush Trazodone HCl 50 mg 07/02/19 21:00 07/05/19 20:55 Desyrel PO 50 mg HS DAMI Administration - Exam Eye: PERRL, anicteric sclera Heart: RRR, no murmur, no gallops, no rubs, normal peripheral pulses Respiratory: CTAB, no wheezes, no rales, no ronchi, normal chest expansion Gastrointestinal: soft, non-tender, non-distended, normal bowel sounds, no palpable masses, no hepatomegaly Extremities: no cyanosis, no clubbing, no edema Hosp A/P (1) Malignant pleural effusion Code(s): J91.0 - MALIGNANT PLEURAL EFFUSION Status: Acute (2) Breast cancer Status: Chronic (3) CAD (coronary artery disease) Code(s): I25.10 - ATHSCL HEART DISEASE OF [place] CORONARY ARTERY W/O ANG PCTRS Status: Chronic (4) HTN (hypertension) Code(s): I10 - ESSENTIAL (PRIMARY) HYPERTENSION Status: Chronic (5) Chronic systolic heart failure Code(s): I50.22 - CHRONIC SYSTOLIC (CONGESTIVE) HEART FAILURE Status: Acute (6) Hypokalemia Code(s): E87.6 - HYPOKALEMIA Status: Chronic - Plan * Malignant Pleural Effusion- she is s/p PleurX catheter placement * Atrial fibrillation- her heart rate is stable * HTN- blood pressure is better today * Hypokalemia- continue to replace * Chronic systolic heart failure- compensated * CAD- stable * I spoke about discharge plans with the patient's daughter. She would like to consider home with Hospice- will place a Consult
--- NOTE | 2019-07-06 12:20 | PDOC.CPN ---
- Subjective Date: 07/06/19 Time: 12:11 - Review of Systems General: denies: fever/chills, weight/appetite/sleep changes, night sweats, fatigue Respiratory: denies: cough, congestion, shortness of breath, exercise intolerance Cardiovascular: denies: chest pain, palpitation, edema, paroxysmal nocturnal dyspnea, orthopnea Gastrointestinal: denies: nausea, vomiting, diarrhea, constipation, abd pain, GI bleeding Musculoskeletal: denies: pain, tenderness, stiffness, swelling, arthritis/ arthralgias Neurological: denies: numbness, syncope, seizure, weakness - Objective Allergies/Adverse Reactions: Allergies Allergy/AdvReac Type Severity Reaction Status Date / Time codeine Allergy Verified 07/02/19 02:18 Visit Medications: Current Medications Acetaminophen (Tylenol) 650 mg PO Q4H PRN PRN Reason: Headache/Fever/Mild Pain (1-3) Amiodarone HCl (Cordarone) 400 mg PO BID [facility] Last Admin: 07/06/19 08:50 Dose: 400 mg Aspirin (Aspirin Chewable) 81 mg PO DAILY [facility] Last Admin: 07/06/19 08:51 Dose: 81 mg Bisacodyl (Dulcolax) 10 mg PO DAILYPRN PRN PRN Reason: Constipation Calcium Carbonate (Caltrate) 600 mg PO QAM-[facility] Last Admin: 07/06/19 08:51 Dose: 600 mg Carvedilol (Coreg) 25 mg PO BID-[facility] Last Admin: 07/06/19 08:51 Dose: 25 mg Cholecalciferol (Vitamin D3) 2,000 units PO DAILY [facility] Last Admin: 07/06/19 08:49 Dose: 2,000 units Cyanocobalamin (Vitamin B-12) 1,000 mcg PO DAILY [facility] Last Admin: 07/06/19 08:50 Dose: 1,000 mcg Digoxin (Lanoxin) 0.125 mg PO DAILY [facility] Enoxaparin Sodium (Lovenox) 40 mg SC 0900 [facility] Last Admin: 07/06/19 08:51 Dose: 40 mg Furosemide (Lasix) 40 mg SLOW IVP 0600,1400 [facility] Last Admin: 07/06/19 05:36 Dose: 40 mg Haloperidol Lactate (Haldol) 5 mg IM Q4H PRN PRN Reason: Agitation Last Admin: 07/03/19 09:13 Dose: 5 mg Losartan Potassium (Cozaar) 25 mg PO DAILY [facility] Last Admin: 07/06/19 08:51 Dose: 25 mg Magnesium Oxide (Magnesium Oxide) 250 mg PO DAILY [facility] Last Admin: 07/06/19 08:50 Dose: 250 mg Meclizine HCl (Antivert) 25 mg PO TIDPRN PRN PRN Reason: Dizziness Ondansetron HCl (Zofran) 4 mg IVP Q6H PRN PRN Reason: Nausea/Vomiting Last Admin: 07/03/19 14:05 Dose: 4 mg Pantoprazole Sodium (Protonix) 40 mg PO DAILY [facility] Last Admin: 07/06/19 08:51 Dose: 40 mg Potassium Chloride (K-Dur) 40 meq PO NOW [facility] Stop: 07/06/19 14:00 Last Admin: 07/06/19 11:57 Dose: 40 meq Potassium Chloride (K-Dur) 40 meq PO 1800 [facility] Stop: 07/06/19 20:00 Senna/Docusate Sodium (Senokot S) 2 tab PO BIDPRN PRN PRN Reason: Constipation Sodium Chloride (Flush - Normal Saline) 10 ml IVF Q12HR [facility] Last Admin: 07/06/19 08:52 Dose: 10 ml Sodium Chloride (Flush - Normal Saline) 10 ml IVF PRN PRN PRN Reason: Saline Flush Last Admin: 07/06/19 05:36 Dose: 10 ml Trazodone HCl (Desyrel) 50 mg PO HS [facility] Last Admin: 07/05/19 20:55 Dose: 50 mg Vital Signs & Weight: Vital Signs Temp Pulse Resp BP Pulse Ox 07/06/19 11:59 97.4 F L 78 16 125/86 93 L 07/06/19 09:49 85 07/06/19 08:00 97.9 F 105 H 20 137/73 93 L 07/06/19 03:14 97.8 F 88 14 148/90 H 93 L Weight 133 lb 9.6 oz - [facility] Congestive heart failure: 1 Age >75: 2 Female: 1 Risk Score: 4 - Quality Measures Condition: Atrial Fibrillation/Flutter (hx or current), Heart Failure CV meds: Beta Km: Yes, ASA: Yes - Physical Exam General: no apparent distress HEENT: mucus membranes moist Neck: supple neck Cardiac: irregularly regular Lungs: clear to auscultation Abdomen: active bowel sounds, soft, non-tender Skin: clear Musculoskeletal: normal range of motion - Labs Result Diagrams: 07/03/19 05:18 07/06/19 10:25 Troponin/CKMB Troponin I 0.015 ng/mL (< 0.028) 07/02/19 02:22 - Telemetry Supraventricular conduction: atrial fibrillation - Problem (1) CHF (congestive heart failure) Code(s): I50.9 - HEART FAILURE, UNSPECIFIED Qualifiers: Heart failure type: systolic Heart failure chronicity: acute Qualified Code(s): I50.21 - Acute systolic (congestive) heart failure (2) Afib Code(s): I48.91 - UNSPECIFIED ATRIAL FIBRILLATION Qualifiers: Atrial fibrillation type: chronic Qualified Code(s): I48.2 - Chronic atrial fibrillation - Assessment/Plan Assessment/Plan: 1. Chronic afib, rate controlled. 2. Acute systolic heart failure. EF 30-35% while in rapid afib. 3. Hypokalemia. 4. Hx of CAD s/p CABG 5. Brain mas 6. Frequent falls with Hx of a small subdural hematoma in the past due to a fall. PLAN: - Continue current dose of PO lasix. - Continue amiodarone load at 400 mg BID for 7 days then switch to 200mg daily. - Poor candidate for full anticoagulation due to falls. - Will hold off on repeating echo as family not interested in lifevest or AICD. - Continue losartan at 25 mg daily. - Replace K - Family has decided to go home on Hospice care. - Will sign off. Please call with any questions.
[2019-07-06] MEDS: traZODone HCl 50 MG TAB PO SCH (20:51)
[2019-07-07 05:38] LABS: Anion Gap 14 mmol/L (10-20); BUN (Urea Nitrogen) 29 mg/dL (9.8-20.1); Calc. Creatinine Clearance 42 mL/min (70-130); Carbon Dioxide 34 mmol/L (23-31); Chloride 99 mmol/L (98-107); Estimated GFR-MDRD 57; Glucose 123 mg/dL (83-110); Potassium 3.5 mmol/L (3.5-5.1); Sodium 143 mmol/L (136-145)
[2019-07-07] MEDS: Furosemide 40 MG/4 ML VIAL SLOW IVP SCH (05:54)
[2019-07-07] MEDS ORDERED: Digoxin 0.125 MG TAB PO SCH (09:00)
[2019-07-07] MEDS: Magnesium Oxide 250 MG TAB PO SCH (09:09)
[2019-07-07] MEDS: Carvedilol 25 MG TAB PO SCH ×2 (09:13→16:26)
[2019-07-07] MEDS: Calcium Carbonate 600 MG TAB PO SCH (09:13)
[2019-07-07] MEDS: Aspirin Chewable 81 MG TAB PO SCH (09:13)
[2019-07-07] MEDS: Cyanocobalamin (Vitamin B-12) 1,000 MCG TAB PO SCH (09:13)
[2019-07-07] MEDS: Amiodarone 200 MG TAB PO SCH (09:13)
[2019-07-07] MEDS: Losartan 25 MG TAB PO SCH (09:13)
[2019-07-07] MEDS: Enoxaparin Sodium 40 MG/0.4 ML SYRINGE SC SCH (09:14)
[2019-07-07] MEDS ORDERED: Potassium Chloride 20 MEQ TAB PO SCH (13:30)
--- NOTE | 2019-07-07 13:48 | PRG ---
DATE OF SERVICE: 07/07/2019 SUBJECTIVE: The patient is seen and examined at bedside. There is the patient's son and the daughter present in the room during my visit. The patient does not have much complaints to offer. She denies any chest pain. She denies any shortness of breath. OBJECTIVE: VITAL SIGNS: Blood pressure is 108/65, pulse is 60, respirations 18, O2 saturation is 95% on room air. HEENT: Her head is atraumatic and normocephalic. Sclerae are nonicteric. Oral mucosa is moist. NECK: Supple. LUNGS: Breath sounds diminished at both bases with bilateral crackles at both bases. No wheezing. HEART: S1 and S2, normal. No S3. No S4. ABDOMEN: Soft, nontender. Bowel sounds are present. EXTREMITIES: No clubbing, cyanosis, or edema. NEUROLOGIC: She follows my commands. She moves her all 4 extremities. There are no any motor deficits. LABORATORY DATA: Showed normal electrolytes, CO2 of 34, BUN 29, creatinine 0.93, glucose 123, calcium 9.0. IMPRESSION: 1. Malignant pleural effusion. 2. Breast cancer. 3. Coronary artery disease. 4. Deconditioning. 5. Hypertension. 6. Chronic systolic heart failure. 7. Hypokalemia. PLAN: The patient is status post PleurX catheter placement. Her IV Lasix will be changed to p.o. 40 mg once a day. She is going to have additional dose of potassium chloride 40 mEq x1 today since her potassium level is borderline this morning at 3.5. Her coronary artery disease is stable. Her LVEF was estimated at approximately 35%. She will continue on amiodarone full dose 400 mg twice a day for a total of 7 days, then she will be switched to 200 mg daily after that. The family is not interested in LifeVest or AICD in the setting of patient with 30% to 35% of LVEF. Job ID: [id number]
--- NOTE | 2019-07-07 16:21 | PDOC.CPN ---
- Subjective Date: 07/07/19 Time: 16:20 - Objective Allergies/Adverse Reactions: Allergies Allergy/AdvReac Type Severity Reaction Status Date / Time codeine Allergy Verified 07/02/19 02:18 Visit Medications: Current Medications Acetaminophen (Tylenol) 650 mg PO Q4H PRN PRN Reason: Headache/Fever/Mild Pain (1-3) Aspirin (Aspirin Chewable) 81 mg PO DAILY [facility] Last Admin: 07/07/19 09:13 Dose: 81 mg Bisacodyl (Dulcolax) 10 mg PO DAILYPRN PRN PRN Reason: Constipation Calcium Carbonate (Caltrate) 600 mg PO QAM-[facility] Last Admin: 07/07/19 09:13 Dose: 600 mg Carvedilol (Coreg) 25 mg PO BID-[facility] Last Admin: 07/07/19 09:13 Dose: 25 mg Cholecalciferol (Vitamin D3) 2,000 units PO DAILY [facility] Last Admin: 07/07/19 09:09 Dose: 2,000 units Cyanocobalamin (Vitamin B-12) 1,000 mcg PO DAILY [facility] Last Admin: 07/07/19 09:13 Dose: 1,000 mcg Enoxaparin Sodium (Lovenox) 40 mg SC 0900 [facility] Last Admin: 07/07/19 09:14 Dose: 40 mg Furosemide (Lasix) 40 mg PO DAILY-[facility] Haloperidol Lactate (Haldol) 5 mg IM Q4H PRN PRN Reason: Agitation Last Admin: 07/03/19 09:13 Dose: 5 mg Losartan Potassium (Cozaar) 25 mg PO DAILY [facility] Last Admin: 07/07/19 09:13 Dose: 25 mg Magnesium Oxide (Magnesium Oxide) 250 mg PO DAILY [facility] Last Admin: 07/07/19 09:09 Dose: 250 mg Meclizine HCl (Antivert) 25 mg PO TIDPRN PRN PRN Reason: Dizziness Ondansetron HCl (Zofran) 4 mg IVP Q6H PRN PRN Reason: Nausea/Vomiting Last Admin: 07/03/19 14:05 Dose: 4 mg Pantoprazole Sodium (Protonix) 40 mg PO DAILY [facility] Last Admin: 07/07/19 09:13 Dose: 40 mg Senna/Docusate Sodium (Senokot S) 2 tab PO BIDPRN PRN PRN Reason: Constipation Sodium Chloride (Flush - Normal Saline) 10 ml IVF Q12HR [facility] Last Admin: 07/07/19 09:24 Dose: 10 ml Sodium Chloride (Flush - Normal Saline) 10 ml IVF PRN PRN PRN Reason: Saline Flush Last Admin: 07/07/19 05:55 Dose: 10 ml Trazodone HCl (Desyrel) 50 mg PO HS [facility] Last Admin: 07/06/19 20:51 Dose: 50 mg Vital Signs & Weight: Vital Signs Temp Pulse Pulse Pulse Resp BP BP 07/07/19 14:44 64 65 113/57 L 117/55 L 07/07/19 12:30 60 18 07/07/19 09:09 66 07/07/19 07:24 07/07/19 07:23 98.7 F 75 18 BP Pulse Ox 07/07/19 14:44 07/07/19 12:30 108/65 95 07/07/19 09:09 07/07/19 07:24 95 07/07/19 07:23 148/73 H 95 Weight 133 lb 8 oz - Quality Measures Condition: Atrial Fibrillation/Flutter (hx or current), Heart Failure CV meds: Beta Km: Yes, ASA: Yes - Labs Result Diagrams: 07/03/19 05:18 07/07/19 04:23 Troponin/CKMB Troponin I 0.015 ng/mL (< 0.028) 07/02/19 02:22 - Problem (1) CHF (congestive heart failure) Code(s): I50.9 - HEART FAILURE, UNSPECIFIED Qualifiers: Heart failure type: systolic Heart failure chronicity: acute Qualified Code(s): I50.21 - Acute systolic (congestive) heart failure (2) Afib Code(s): I48.91 - UNSPECIFIED ATRIAL FIBRILLATION Qualifiers: Atrial fibrillation type: chronic Qualified Code(s): I48.2 - Chronic atrial fibrillation - Assessment/Plan Assessment/Plan: 1. Chronic afib, rate controlled. 2. Acute systolic heart failure. EF 30-35% while in rapid afib. 3. Hypokalemia. 4. Hx of CAD s/p CABG 5. Brain mas 6. Frequent falls with Hx of a small subdural hematoma in the past due to a fall. PLAN: - Had a 3 second pause. - Will stop amiodarone and digoxin. - Continue current dose of Coreg for rate control.
[2019-07-07] MEDS: traZODone HCl 50 MG TAB PO SCH (21:28)
[2019-07-08] MEDS ORDERED: Furosemide 40 MG TAB PO SCH (07:30)
[2019-07-08 07:54] LABS: Anion Gap 10 mmol/L (10-20); BUN (Urea Nitrogen) 30 mg/dL (9.8-20.1); Calc. Creatinine Clearance 45 mL/min (70-130); Carbon Dioxide 33 mmol/L (23-31); Chloride 102 mmol/L (98-107); Estimated GFR-MDRD 63; Glucose 114 mg/dL (83-110); Potassium 3.9 mmol/L (3.5-5.1); Sodium 141 mmol/L (136-145)
[2019-07-08] MEDS ORDERED: Amiodarone 200 MG TAB PO SCH (09:00)
[2019-07-08] MEDS: Magnesium Oxide 250 MG TAB PO SCH (09:15)
[2019-07-08] MEDS: Calcium Carbonate 600 MG TAB PO SCH (09:16)
[2019-07-08] MEDS: Aspirin Chewable 81 MG TAB PO SCH (09:16)
[2019-07-08] MEDS: Enoxaparin Sodium 40 MG/0.4 ML SYRINGE SC SCH (09:16)
[2019-07-08] MEDS: Cyanocobalamin (Vitamin B-12) 1,000 MCG TAB PO SCH (09:16)
[2019-07-08] MEDS: Carvedilol 25 MG TAB PO SCH (09:16)
[2019-07-08] MEDS: Losartan 25 MG TAB PO SCH (09:16)
[2019-07-08 11:59] VITALS: TEMP 97.9
[2019-07-08 14:24] VITALS: BP 141/63
--- NOTE | 2019-07-09 05:00 | DIS ---
DATE OF ADMISSION: 07/02/2019 DATE OF DISCHARGE: 07/08/2019 DIAGNOSES AT THE TIME OF DISCHARGE: 1. Congestive heart failure with left ventricular ejection fraction of 30% to 35%. 2. Atrial fibrillation with rapid ventricular response. 3. Hypokalemia. 4. History of coronary artery disease status post coronary artery bypass graft. 5. Frequent falls with history of small subdural hematoma in the past due to a fall. 6. Brain mass. 7. History of bilateral mastectomy. [employer] AGENT: Dr. Luigi Morris, Cardiology Service. PROCEDURE: Echocardiogram showed ejection fraction of 30% to 35%, severe dilated left atrium, markedly enlarged right atrium, aortic valve sclerosis, moderate tricuspid regurgitation, elevated right ventricular systolic pressure, estimated at 55 and moderate-size pleural effusion. HOSPITAL COURSE: The patient is an 84-year-old female with past medical history of atrial fibrillation, not on any anticoagulation, complaining of some nausea and abdominal discomfort. The patient was evaluated in the emergency room. She was found to have white count of 13,000, hemoglobin 13.6, hematocrit 42.4, and platelet count 228,000. Potassium 3.5, creatinine 0.82. Troponins x3 were negative. BNP was 649. Lipase was 19. Urine did not show any infectious etiology problem. The chest x-ray showed bilateral pleural effusion. A CT of the abdomen and pelvis showed large bilateral pleural effusion, cardiomegaly suggestive of mitral valve thickening involving the gastric antrum and pylorus. She was admitted with working diagnosis of CHF and she was started on Cardizem for her atrial fibrillation with RVR. She was seen by Dr. Morris for Cardiology evaluation, who recommended echocardiogram, which was done, which showed LVEF of 30% to 35%. The patient was started on ARB and IV Lasix was continued daily. She required a lot of supplementation of potassium. The patient's family was not very interested in any invasive treatments. They did not want her to have LifeVest or go through cardiac catheterization. Her blood pressure is 136/66, pulse is 71, temperature is 97.6, respirations 18, O2 saturation is 98% on room air. She is seen and examined before she is discharged. She is showing quite significantly advanced dementia, but clinically she is stable. Her potassium is up to 3.9 today after replacement yesterday. Her magnesium was 2.3. She is discharged to inpatient rehab for PT and OT. We will keep her on heart healthy diet. MEDICATIONS AT THE TIME OF DISCHARGE: 1. Aspirin 81 mg once a day. 2. Calcium carbonate 600 mg once a day. 3. Carvedilol 25 mg twice a day. 4. Vitamin D3, 2000 units once a day. 5. Vitamin B12, 1000 mcg once a day. 6. Furosemide 40 mg p.o. once a day. 7. Losartan 25 mg once a day. 8. Magnesium oxide 250 mg once a day. 9. Pantoprazole 40 mg once a day. 10. Trazodone 50 mg at bedtime and 20 of KCl. DISCHARGE INSTRUCTIONS: She needs to have BMP done in 3 days. She will stay on a heart healthy diet, activities as tolerated and she will need to have followup appointment with her primary care physician and Cardiology after she is discharged from the inpatient rehab, although the family was considering to maybe ask for Hospice Services to be involved, it depends on how she does at an inpatient rehab. Job ID: [id number]
== END 2019-07-08 16:58 | DRG 308 ==
LOC: ERS 20:05 → 2NO 07-02 01:23
PROVIDERS: ADMIT Hospitalist; ATTEND Hospitalist
DX: I48.0 Paroxysmal atrial fibrillation (principal); I50.23 Acute on chronic systolic (congestive) heart failure; J91.0 Malignant pleural effusion; I11.0 Hypertensive heart disease with heart failure; F03.90 Unspecified dementia, unspecified severity, without behavioral disturbance, psychotic disturbance, mood disturbance, and anxiety; E78.5 Hyperlipidemia, unspecified; E87.6 Hypokalemia; G62.9 Polyneuropathy, unspecified; R29.6 Repeated falls; I25.10 Atherosclerotic heart disease of native coronary artery without angina pectoris; C80.1 Malignant (primary) neoplasm, unspecified; Z95.1 Presence of aortocoronary bypass graft; Z85.3 Personal history of malignant neoplasm of breast; Z88.5 Allergy status to narcotic agent; Z79.899 Other long term (current) drug therapy; Z79.82 Long term (current) use of aspirin; Z90.49 Acquired absence of other specified parts of digestive tract; Z88.2 Allergy status to sulfonamides; Z95.5 Presence of coronary angioplasty implant and graft; Z87.820 Personal history of traumatic brain injury
CPT/HCPCS: 36415; 71045; 74177; 80048; 80053; 81001; 83690; 83735; 83880; 84145; 84443; 84484; 85025; 93005; 93306; 94760; 96365; 96366; 96368; 96375; 96376; J0282; J0456; J0696; J1630; J1650; J1940; J1956; J2405; J3480; J3490; J7050; J7070; Q0163; Q9966